=== PATIENT | female | born 1960 | race Caucasian/White ===

== ENCOUNTER 2016-11-24 14:06 | Emergency (ER) | payer MEDICARE, BC, MEDICAID ==
[2016-11-24] MEDS ORDERED: HYDROmorphone 1 MG/ML Syringe IM ONE (15:36)
[2016-11-24] MEDS ORDERED: Ondansetron 4 MG/2 ML SDV IVPUSH ONE (16:34)
[2016-11-24] MEDS ORDERED: Sodium Chloride 0.9% 1,000 ML IV SCH (16:45)
[2016-11-24 17:12] VITALS: BP 140/72
--- NOTE | 2016-11-24 17:17 | EDM.PDOC ---
ED HPI GENERAL MEDICAL PROBLEM - General Chief Complaint: General Stated Complaint: [facility] Time Seen by Provider: 11/24/16 15:00 Source of Information: Reports: Patient, Family History Limitations: Reports: No Limitations - History of Present Illness INITIAL COMMENTS - FREE TEXT/NARRATIVE: pr arrived with severe pain in thre rt hip. [facility] She is out of her dilaudid --ran out last nit. Her perscription will be filled on . This will come from the [facility]. Onset: Other (pt is out of her dilaudid) Duration: Hour(s): Location: Reports: Lower Extremity, Right Associated Symptoms: Reports: No Other Symptoms Treatments [employer]: Reports: Other Medication(s) Other Treatments [employer] MA[employer]GER: DIALUDED 3 MG, ATIVAN 1 MG, AND ZOFRAN 4 MG IVP PER EMS Right Hip Pain Score (Numeric/FACES): 7 - Related Data Allergies Allergy/AdvReac Type Severity Reaction Status Date / Time latex Allergy Severe Swollen Verified 11/24/16 14:38 Tongue Penicillins Allergy Severe Cardiac Verified 11/24/16 14:38 Arrest fentanyl Allergy Mild Rash Verified 11/24/16 14:38 Cephalosporins Allergy Other Verified 11/24/16 14:38 clindamycin Allergy Rash Verified 11/24/16 14:38 erythromycin base Allergy Rash Verified 11/24/16 14:38 [Erythromycin Base] estropipate [Estropipate] Allergy Cannot Verified 11/24/16 14:38 Remember morphine Allergy Swelling Verified 11/24/16 14:38 oxycodone HCl Allergy Other Verified 11/24/16 14:38 [From OxyContin] progesterone Allergy Cannot Verified 11/24/16 14:38 Remember sulfasalazine [Sulfasalazine] Allergy Cannot Verified 12/13/14 13:42 Remember temazepam [Temazepam] Allergy Cannot Verified 12/13/14 13:42 Remember Estrogens AdvReac Nausea Verified 12/13/14 13:42 eszopiclone [From Lunesta] AdvReac Insomnia Verified 12/13/14 13:42 zolpidem tartrate AdvReac Insomnia Verified 12/13/14 13:42 [From Ambien] Home Meds: Home Meds Baclofen 10 mg PO TID 01/13/14 [History] Doxylamine Succinate [Unisom Sleep Aid] 50 mg PO BEDTIME 01/13/14 [History] EPINEPHrine [Epinephrine] 1 injection IM ASDIRECTED PRN 01/13/14 [History] Furosemide [Lasix] 40 mg PO DAILY PRN 01/13/14 [History] Gabapentin [Neurontin] 1,200 mg PO TID 01/13/14 [History] LORazepam [Ativan] 1.5 mg PO BEDTIME 01/13/14 [History] Ondansetron [Zofran ODT] 4 mg PO Q4H PRN 01/13/14 [History] Rivaroxaban [Xarelto] 20 mg PO PCDINNER 01/13/14 [History] LORazepam 1 mg PO Q4HR PRN 11/12/14 [History] HYDROmorphone [Dilaudid] 8 mg PO Q6HR #0 12/06/14 [Rx] Lactobacillus Rhamnosus GG [Culturelle] 2 cap PO BID cap 12/06/14 [Rx] Diphenoxylate HCl/Atropine [Lomotil] 1 tab PO QID 12/13/14 [History] Past Medical History Other Musculoskeletal History: right hip pain injury Other Endocrine/Metabolic History: hypoglycemic - Past Surgical History Other Musculoskeletal Surgeries/Procedures:: pelvic fx with multiple surgeries Social & Family History - Tobacco Use Smoking Status *Q: Unknown Ever Smoked Years of Tobacco use: 20 Packs/Tins Daily: 0.2 Used Tobacco, but Quit: No Month Tobacco Last Used: October Hand Smoke Exposure: Yes - Alcohol Use Days Per Week of Alcohol Use: 0 - Recreational Drug Use Recreational Drug Use: No ED ROS GENERAL - Review of Systems Review Of Systems: See Below Constitutional: Reports: No Symptoms HEENT: Reports: No Symptoms Respiratory: Reports: No Symptoms Cardiovascular: Reports: No Symptoms Endocrine: Reports: No Symptoms GI/Abdominal: Reports: No Symptoms : Reports: No Symptoms Musculoskeletal: Reports: Other (pain in her rt hip. She has had [place] [facility] [place]. ) Skin: Reports: No Symptoms Neurological: Reports: No Symptoms Psychiatric: Reports: Anxiety ED EXAM, GENERAL - Physical Exam Exam: See Below Free Text/Narrative:: PT IS OUT OF HER DILAUDID. hER PERSCRIPTION WILL COME FROM THE [facility] ON . Exam Limited By: No Limitations General Appearance: Alert, Anxious, Moderate Distress Ears: Normal TMs Nose: Normal Inspection Throat/Mouth: Normal Inspection Head: Atraumatic Neck: Normal Inspection Respiratory/Chest: No Respiratory Distress Cardiovascular: Regular Rate, Rhythm GI/Abdominal: Soft, Non-Tender (Female) Exam: Deferred Rectal (Female) Exam: Deferred Extremities: Other ( tHERE IS NO SIGN OF INFECTION IN THE HIP. ) Neurological: Alert, Oriented, Normal Cognition Psychiatric: Normal Affect Course - Vital Signs Last Recorded V/S: Last Vital Signs Temp 37.1 C 11/24/16 17:11 Pulse 80 11/24/16 17:11 Resp 15 11/24/16 17:11 BP 140/72 11/24/16 17:11 Pulse Ox 98 11/24/16 17:11 - Orders/Labs/Meds Labs: Laboratory Tests 11/24/16 11/24/16 11/24/16 Range/Units 15:45 15:45 15:58 WBC 5.7 (4.5-11.0) K/uL RBC 3.70 (3.30-5.50) M/uL Hgb 9.2 L D (12.0-15.0) g/dL Hct 30.1 L (36.0-48.0) % MCV 81 (80-98) fL MCH 25 L (27-31) pg MCHC 31 L (32-36) % Plt Count 271 (150-400) K/uL Neut % (Auto) 76 H (36-66) % Lymph % (Auto) 16 L (24-44) % [place] % (Auto) 7 H (2-6) % Eos % (Auto) 1 L (2-4) % Baso % (Auto) 1 (0-1) % Sodium 141 (140-148) mmol/L Potassium 3.9 (3.6-5.2) mmol/L Chloride 105 (100-108) mmol/L Carbon Dioxide 28 (21-32) mmol/L Anion Gap 8.0 (5.0-14.0) mmol/L BUN 5 L (7-18) mg/dL Creatinine 0.7 D (0.6-1.0) mg/dL Est Cr Clr Drug Dosing 81.71 mL/min Estimated GFR (MDRD) > 60 (>60) Glucose 108 H (74-106) mg/dL Calcium 8.6 (8.5-10.1) mg/dL Total Bilirubin 0.4 (0.2-1.0) mg/dL AST 22 (15-37) U/L ALT 24 (12-78) U/L Alkaline Phosphatase 135 H (46-116) U/L Total Protein 6.5 (6.4-8.2) g/dL Albumin 3.3 L (3.4-5.0) g/dL Globulin 3.2 (2.3-3.5) g/dL Albumin/Globulin Ratio 1.0 L (1.2-2.2) Urine Color Yellow Urine Appearance Slightly cloudy Urine pH 8.0 (4.5-8.0) Ur Specific [place] 1.010 (1.008-1.030) Urine Protein Negative (NEGATIVE) mg/dL Urine Glucose (UA) Normal (NEGATIVE) mg/dL Urine Ketones Negative (NEGATIVE) mg/dL Urine Occult Blood Negative (NEGATIVE) Urine Nitrite Negative (NEGATIVE) Urine Bilirubin Negative (NEGATIVE) Urine Urobilinogen Normal (NORMAL) mg/dL Ur Leukocyte Esterase Negative (NEGATIVE) Urine RBC 0-5 (0-5) Urine WBC Not seen (0-5) Ur Epithelial Cells Not seen Amorphous Sediment Rare Urine Bacteria Rare Urine Mucus Not seen Meds: Medications Discontinued Medications Generic Name Dose Route Start Last Admin Trade Name Freq PRN Reason Stop Dose Admin Hydromorphone HCl 1 mg 11/24/16 15:36 11/24/16 15:49 Dilaudid IM 11/24/16 15:37 1 mg ONETIME ONE Administration Sodium Chloride 1,000 mls @ 999 mls/hr 11/24/16 16:45 11/24/16 17:07 Normal Saline IV 999 mls/hr ASDIRECTED JOSE Administration Ondansetron HCl 4 mg 11/24/16 16:34 11/24/16 17:07 Zofran IVPUSH 11/24/16 16:35 4 mg ONETIME ONE Administration - Re-Assessments/Exams Free Text/Narrative Re-Assessment/Exam: 11/24/16 17:19 PT HAS GOOD LABS EXCEPT FOR ANEMIA WHICH IS CHRONIC FOR THE PT. sHE WAS GIVEN DILAUDID 1MG IV. sHE APPEARS TO BE QUITE COMFORTABLE. Departure - Departure Time of Disposition: 17:20 Disposition: Home, Self-Care 01 Condition: Fair Clinical Impression: Right hip pain - Discharge Information Instructions: Hip Pain Referrals: PCP,None [Primary Care Provider] - Forms: ED Department Discharge Care Plan Goals: [facility], COOL PACK THE HIP, LAB WORK WAS NORMAL EXCEPT FOR ANEMIA WHICH IS CHRONIC, DILAUDID 4MG 2 TAB Q6-8H FOR PAIN ZOFORAN 4MG SUBLING Q6H NEEDED FOR NAUSEA. GET A PRIMARY CARE [facility]YSIAN IN THE AREA. and in THE FUTURE CONSIDER A PAIN CLINIC.
== END 2016-11-24 17:34 | disposition home or self-care (01) ==
LOC: JP.ED 14:06
DX: M25.551 Pain in right hip (principal); Z88.8 Allergy status to other drugs, medicaments and biological substances; Z88.0 Allergy status to penicillin; Z88.1 Allergy status to other antibiotic agents; Z91.040 Latex allergy status; Z79.899 Other long term (current) drug therapy
CPT/HCPCS: 36415; 80053; 81001; 85025; 96374; 99284; J1170; J2405; J7040; 99283